=== PATIENT | female | born 1965 | race Hispanic/Latino ===

== ENCOUNTER 2023-02-20 13:20 | Observation (INO) | payer BC, SELFPAY ==
[~2023-02-20 13:20] MED LIST: Iopamidol-370 76% 500 ML MDV (1 ML CHARGE) ONE; Magnevist 469MG/ML 20 ML VIAL ONE
[2023-02-20 14:08] LABS: #Eosinphils 0.1 thou/uL (0.0-0.7); #Neutrophils 6.6 thou/uL (1.40-6.50); %Basophils 0.3 % (0.0-1.0); %Lymphocytes 27.1 % (21.0-51.0); %Monocytes 9.1 % (0.0-10.0); %Neutrophils 62.2 % (42.0-75.0); Hematocrit 40.6 % (36.0-47.0); Hemoglobin 12.8 g/dL (12.0-16.0); Mean Corpuscular HGB CONC 31.5 g/dL (32.0-36.0); Mean Corpuscular Hemoglobin 27.4 pg (27.0-31.0); Mean Corpuscular Volume 86.9 fl (78.0-98.0); Mean Platelet Volume 10.7 fL (7.4-10.4); Platelet Count 289 10x3/uL (130-400); RBC Distribution Width 13.6 % (11.5-14.5); Red Blood Cell (RBC) Count 4.67 mill/uL (4.20-5.40); White Blood Cell (WBC) Count 10.6 10x3/uL (4.8-10.8)
[2023-02-20 14:39] LABS: ALT (SGPT) 75 U/L (8-55); AST (SGOT) 59 U/L (5-34); Albumin 3.6 g/dL (3.5-5.0); Alkaline Phosphatase 145 U/L (40-110); Anion Gap 16 mmol/L (10-20); BUN (Urea Nitrogen) 26 mg/dL (9.8-20.1); Bilirubin, Total 0.4 mg/dL (0.2-1.2); Calc. Creatinine Clearance 0 mL/min (70-130); Calcium 10.4 mg/dL (7.8-10.44); Carbon Dioxide 20 mmol/L (22-29); Chloride 109 mmol/L (98-107); Estimated GFR 85; Globulin 3.1 g/dL (2.4-3.5); Glucose 178 mg/dL (70-105); Lipase 114 U/L (8-78); Potassium 3.9 mmol/L (3.5-5.1); Protein, Total 6.7 g/dL (6.0-8.3); Sodium 141 mmol/L (136-145)
[2023-02-20 14:57] LABS: Troponin I Less than 0.010 ng/mL (< 0.028)
[2023-02-20 15:36] LABS: Bacteria/HPF None Seen HPF (None Seen); Bilirubin Negative (Negative); Blood, Urine Negative (Negative); CAUTI Indications for Culture Dysuria,urgency,freq; Clarity Clear (Clear); Glucose, Urine (Dipstick) Normal (Negative); Ketone, Urine Negative (Negative); Leukocyte 25 Leu/uL (Negative); Nitrite Negative (Negative); Protein, Urine (Dipstick) 30 mg/dL (Neg-Trace); RBC/HPF 0-3 HPF (0-3); Specific Gravity, Urine 1.021 (1.002-1.036); Squamous Epithelial 0-3 HPF (0-3); Urobilinogen Normal mg/dL (Less than 2); WBC/HPF 0-3 HPF (0-3); pH, Urine 5.5 (5.0-9.0)
[2023-02-20 15:44] LABS: Urine Culture Reflex No No
[2023-02-20] MEDS ORDERED: Ketorolac Tromethamine 30 MG/ML VIAL ONE (15:58)
[2023-02-20] MEDS ORDERED: Morphine 4 MG/ML VIAL ONE (15:58)
[2023-02-20 18:03] LABS: Lactic Acid 1.5 mmol/L (0.5-2.2)
[2023-02-20] MEDS ORDERED: Senokot S 8.6-50 MG TAB PO PRN (18:07)
[2023-02-20] MEDS ORDERED: Acetaminophen 325 MG TAB PO PRN (18:07)
[2023-02-20] MEDS ORDERED: Sodium Chloride 0.9% 1,000 ML IV SCH (18:15)
[2023-02-20] MEDS ORDERED: Morphine 2 MG/ML VIAL SLOW IVP PRN (18:23)
[2023-02-20] MEDS ORDERED: Melatonin 3 MG TAB PO PRN (18:23)
[2023-02-20 18:38] LABS: Hemoglobin A1c 6.4 % (4.0-6.0)
[2023-02-20] MEDS ORDERED: HumaLOG 300 UNITS/3 ML VIAL SC PRN (19:22)
[2023-02-20] MEDS ORDERED: Glucagon 1 MG/ML KIT IM PRN (19:22)
[2023-02-20] MEDS ORDERED: Dextrose 5% in Water 1,000 ML IV PRN (19:22)
[2023-02-20] MEDS ORDERED: Dextrose 50% Abboject 50 ML SYRINGE SLOW IVP PRN (19:22)
[2023-02-21 02:07] VITALS: BMI 34.2
[2023-02-21 07:10] LABS: #Eosinphils 0.2 thou/uL (0.0-0.7); #Monocytes 0.8 thou/uL (0.11-0.59); #Neutrophils 4.2 thou/uL (1.40-6.50); %Basophils 0.3 % (0.0-1.0); %Eosinophils 2.3 % (0.0-10.0); %Lymphocytes 25.6 % (21.0-51.0); %Neutrophils 60.5 % (42.0-75.0); Hematocrit 36.6 % (36.0-47.0); Hemoglobin 11.4 g/dL (12.0-16.0); Mean Corpuscular HGB CONC 31.1 g/dL (32.0-36.0); Mean Corpuscular Hemoglobin 27.6 pg (27.0-31.0); Mean Corpuscular Volume 88.6 fl (78.0-98.0); Mean Platelet Volume 11.1 fL (7.4-10.4); Platelet Count 222 10x3/uL (130-400); RBC Distribution Width 13.6 % (11.5-14.5); Red Blood Cell (RBC) Count 4.13 mill/uL (4.20-5.40); White Blood Cell (WBC) Count 6.9 10x3/uL (4.8-10.8)
[2023-02-21 07:38] LABS: ALT (SGPT) 52 U/L (8-55); AST (SGOT) 37 U/L (5-34); Albumin 3.1 g/dL (3.5-5.0); Alkaline Phosphatase 119 U/L (40-110); Anion Gap 12 mmol/L (10-20); BUN (Urea Nitrogen) 13 mg/dL (9.8-20.1); Bilirubin, Total 0.3 mg/dL (0.2-1.2); Calc. Creatinine Clearance 153 mL/min (70-130); Calcium 9.9 mg/dL (7.8-10.44); Carbon Dioxide 20 mmol/L (22-29); Chloride 113 mmol/L (98-107); Estimated GFR 106; Globulin 2.4 g/dL (2.4-3.5); Glucose 99 mg/dL (70-105); Lipase 218 U/L (8-78); Potassium 3.5 mmol/L (3.5-5.1); Protein, Total 5.5 g/dL (6.0-8.3); Sodium 141 mmol/L (136-145)
[2023-02-21] MEDS ORDERED: Lisinopril 20 MG TAB PO SCH (09:00)
[2023-02-21] MEDS ORDERED: Escitalopram Oxalate 10 mg Tablet PO SCH (09:00)
[2023-02-21] MEDS ORDERED: Dexamethasone 4 mg/ml Vial SLOW IVP SCH (11:30)
[2023-02-21 12:04] LABS: Free T4 (Free Thyroxine) 2.94 ng/dL (0.70-1.48)
[2023-02-21 12:16] VITALS: BP 115/64; TEMP 98.9
[2023-02-21 12:55] LABS: Thyroid Stimulating Hormone Less than 0.0025 uIU/mL (0.35-4.94)
== END 2023-02-21 14:55 | disposition home or self-care (01) ==
LOC: ERS 13:20 → T4-A 17:21
PROVIDERS: ADMIT Hospitalist; ATTEND Internal Medicine
DX: R10.32 Left lower quadrant pain (principal); K21.9 Gastro-esophageal reflux disease without esophagitis; M51.36 Other intervertebral disc degeneration, lumbar region; M43.16 Spondylolisthesis, lumbar region; I10 Essential (primary) hypertension; F41.9 Anxiety disorder, unspecified; M19.90 Unspecified osteoarthritis, unspecified site; R74.8 Abnormal levels of other serum enzymes; R73.9 Hyperglycemia, unspecified; R00.0 Tachycardia, unspecified; Z79.899 Other long term (current) drug therapy
CPT/HCPCS: 36415; 36416; 71045; 72146; 72158; 74177; 80053; 81001; 83036; 83605; 83690; 84439; 84443; 84481; 84484; 85025; 85652; 86140; 87040; 87635; 93005; 96361; 96372; 96374; 96375; A9579; G0378; J1100; J1650; J1885; J2270; J7050; Q9967